=== PATIENT | male | born 1970 | race Two or more races ===

== ENCOUNTER 2020-09-03 21:11 | Emergency (ER) | payer MEDICAID, OTHER ==
[~2020-09-03] VITALS: Ht 182.9 cm; Wt 79.4 kg
--- NOTE | 2020-09-03 21:40 | NUR ---
BIBS FROM HOME TO ER BED 12. AAOX4. NOT IN RESP DISTRESS. AMBULATORY. CAME IN FOR NOT FEELING WELL BECAUSE HE IS GOING THROUGH WITHDRAWAL PER PT REPORT. PT VERBALIZES THAT HE STARTED TO QUIT DRINKING TODAY, LAST DRINK WAS 1600 WITH 24OZ BEER. AWATING MD FOR EVAL. PT ON MONITOR
[2020-09-03] MEDS ORDERED: CHLO25CA22 PO (21:49)
--- NOTE | 2020-09-03 22:28 | NUR ---
Patient discharged to home in stable condition. Written and verbal after care instructions given. Patient verbalizes understanding of instruction. Pt ambulatory with a steady gait. Pt is awaiting pickup by her .
[2020-09-03 22:30] VITALS: BP 112/67
== END 2020-09-03 22:30 | disposition home or self-care (01) ==
LOC: ER 21:12
DX: F10.239 Alcohol dependence with withdrawal, unspecified (principal); G35 Multiple sclerosis; Y90.9 Presence of alcohol in blood, level not specified; Z98.890 Other specified postprocedural states; Z88.1 Allergy status to other antibiotic agents